=== PATIENT | male | born 1995 ===

== ENCOUNTER 2020-09-04 09:14 | Emergency (ER) | payer OTHER ==
--- NOTE | 2020-09-04 09:42 | EDM.PDOC ---
ED HPI GENERAL MEDICAL PROBLEM - General Chief Complaint: Skin Complaint Stated Complaint: SKIN RASH Time Seen by Provider: 09/04/20 09:35 Source of Information: Reports: Patient, RN, RN Notes Reviewed History Limitations: Reports: No Limitations - History of Present Illness INITIAL COMMENTS - FREE TEXT/NARRATIVE: Patient presents to the ED via personal vehicle with complaints of rash to right, lateral neck. The patient states he woke up this morning with one patch of vesicular lesions to his right, lateral neck; he reports burning pain to the area. 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 He denies any additional lesions at this time. He denies recent illness, fever, shaking chills, cough, sore throat, nausea, vomiting, or diarrhea. He states he has not taken any medications for this rash but he has taken Valtrex in the past for similar outbreaks. - Related Data Allergies Allergy/AdvReac Type Severity Reaction Status Date / Time No Known Allergies Allergy Verified 09/04/20 09:26 Home Meds: Home Meds valACYclovir HCl [Valtrex] 500 mg PO 09/04/20 [History] Past Medical History - Past Health History Medical/Surgical History: Denies Medical/Surgical History HEENT History: Reports: None Cardiovascular History: Reports: None Respiratory History: Reports: None Gastrointestinal History: Reports: None Genitourinary History: Reports: None Musculoskeletal History: Reports: None Neurological History: Reports: None Psychiatric History: Reports: None Endocrine/Metabolic History: Reports: None Hematologic History: Reports: None Immunologic History: Reports: None Oncologic (Cancer) History: Reports: None Dermatologic History: Reports: None - Infectious Disease History Infectious Disease History: Reports: Herpes - Past Surgical History Head Surgeries/Procedures: Reports: None Social & Family History - Family History Family Medical History: No Pertinent Family History - Tobacco Use Tobacco Use Status *Q: Never Tobacco User - Caffeine Use Caffeine Use: Reports: Coffee, Energy Drinks, Soda - Recreational Drug Use Recreational Drug Use: No ED ROS GENERAL - Review of Systems Review Of Systems: Comprehensive ROS is negative, except as noted in HPI. ED EXAM, SKIN/RASH Exam: See Below Exam Limited By: No Limitations General Appearance: Alert, No Apparent Distress Eye Exam: Bilateral Eye: EOMI, Normal Inspection, PERRL (5mm) Ears: Normal External Exam Nose: Normal Inspection, Normal Mucosa, No Blood Throat/Mouth: Normal Inspection, Normal Voice, No Airway Compromise Head: Atraumatic, Normocephalic Neck: Supple, Full Range of Motion, Tender Lateral, Other (2cm x 2cm patch of closed vesicular lesions to right, lateral neck). No: Lymphadenopathy (L), Lymphadenopathy (R), Tender Midline Respiratory/Chest: No Respiratory Distress, Lungs Clear, Normal Breath Sounds, No Accessory Muscle Use, Chest Non-Tender Cardiovascular: Normal Peripheral Pulses, Regular Rate, Rhythm, No Edema, No Gallop, No JVD, No Murmur, No Rub Neurological: Alert, Oriented, CN II-XII Intact, Normal Cognition, Normal Gait, No Motor/Sensory Deficits Psychiatric: Normal Affect, Normal Mood Skin: Warm, Dry, Intact, Zoster-Like Rash (To right, lateral neck; Lesions closed at this time). No: Erythema, Increased Warmth, Jaundice, Mottled, Pallor Location, Skin: Neck Characteristics: Vesicular Associated features: Tenderness. No: Warmth, Inflammation, Crusting, Weeping Lymphatic: No Adenopathy Course - Vital Signs Last Recorded V/S: Last Vital Signs Temp 97.5 F 09/04/20 09:27 Pulse 64 09/04/20 09:27 Resp 18 09/04/20 09:27 BP 125/68 09/04/20 09:27 Pulse Ox 100 09/04/20 09:27 - Re-Assessments/Exams Free Text/Narrative Re-Assessment/Exam: 09/04/20 Given patient has a history of HSV, will treat rash with Valacyclovir. Discussed supportive care measures with patient. Patient verbalized understanding and agreement with the plan of care. Departure - Departure Time of Disposition: 09:39 Disposition: Home, Self-Care 01 Condition: Good Clinical Impression: Herpes simplex infection - Discharge Information *PRESCRIPTION DRUG MONITORING PROGRAM REVIEWED*: Not Applicable *COPY OF PRESCRIPTION DRUG MONITORING REPORT IN PATIENT WOLF: Not Applicable Instructions: Preventive Care 21-39 Years Old, Male Forms: ED Department Discharge Additional Instructions: Rx: Valacyclovir 1.) Take all of your medication until gone 2.) You may apply/alternate heat compresses and ice compresses to the affected area as pain persists. 3.) You may take ibuprofen (Advil/Motrin) 800mg every six hours, as pain/inflammation persists. Sepsis Event Note (ED) - Evaluation Sepsis Screening Result: No Definite Risk - Focused Exam Vital Signs: Vital Signs Temp Pulse Resp BP Pulse Ox 09/04/20 09:27 97.5 F 64 18 125/68 100
== END 2020-09-04 09:45 | disposition home or self-care (01) ==
LOC: DL.ED 09:14
DX: B00.9 Herpesviral infection, unspecified (principal)
CPT/HCPCS: 99282